=== PATIENT | male | born 1985 | race African-American/Black ===

== ENCOUNTER 2019-02-20 10:51 | Emergency (ER) | payer BC ==
[2019-02-20] MEDS ORDERED: methylPREDNISolone Sodium Succinate 125 MG/2 ML SDV IM ONE (11:22)
[2019-02-20] MEDS ORDERED: Albuterol/Ipratropium 3.0-0.5 MG/3 ML Neb Soln NEB ONE (11:22)
--- NOTE | 2019-02-20 11:30 | EDM.PDOC ---
ED HPI GENERAL MEDICAL PROBLEM - General Chief Complaint: General Stated Complaint: MAY HAVE FLU Time Seen by Provider: 02/20/19 10:54 Source of Information: Reports: Patient History Limitations: Reports: No Limitations - History of Present Illness INITIAL COMMENTS - FREE TEXT/NARRATIVE: HISTORY AND PHYSICAL: History of present illness: Patient is a 33-year-old male who presents to the ED today with concern of cough over the last 4 to 5 days. Patient states initially when the cough that started he did feel as if he had a fever with a cough but states he has not had a fever for 3 days now. Patient states he came to the ED today because he notices he has been wheezing more with a cough and that having "cough attacks." Patient states he does smoke a pack of cigarettes a day and has so for about 3 to 5 years. Patient denies any health history or any other symptoms or concerns. Patient denies fever, chills, chest pain, shortness of breath. Denies headache, neck stiff ness, change in vision, syncope, or near syncope. Denies nausea, vomiting, abdominal pain, diarrhea, constipation, or dysuria. Has not noted any blood in urine or stool. Patient has been eating and drinking appropriately. Review of systems: As per history of present illness and below otherwise all systems reviewed and negative. Past medical history: As per history of present illness and as reviewed below otherwise noncontributory. Surgical history: As per history of present illness and as reviewed below otherwise noncontributory. Social history: See social history for further information Family history: As per history of present illness and as reviewed below otherwise noncontributory. Physical exam: General: Patient is alert, oriented, and in no acute distress. Patient sitting comfortably on exam table. HEENT: Atraumatic, normocephalic, pupils equal and reactive bilaterally, negative for conjunctival pallor or scleral icterus, mucous membranes moist, TMs normal bilaterally, throat clear, neck supple, nontender, trachea midline. No drooling or trismus noted. No meningeal signs. No hot potato voice noted. Lungs: Mild-moderate wheezing to auscultation of bilateral lung bases, breath sounds equal bilaterally, chest nontender. Heart: S1S2, regular rate and rhythm without overt murmur Abdomen: Soft, nondistended, nontender. Negative for masses or hepatosplenomegaly. Negative for costovertebral tenderness. Pelvis: Stable nontender. Genitourinary: Deferred. Rectal: Deferred. Skin: Intact, warm, dry. No lesions or rashes noted. Extremities: Atraumatic, negative for cords or calf pain. Neurovascular unremarkable. Neuro: Awake, alert, oriented. Cranial nerves II through XII unremarkable. Cerebellum unremarkable. Motor and sensory unremarkable throughout. Exam nonfocal. Notes: Discussed importance of follow-up with primary care provider. Voices understanding and is agreeable to plan of care. Denies any further questions or concerns at this time. Diagnostics: CBC, CMP, CXR, Influenza, Strep Therapeutics: Duoneb, Solumedrol Prescription: Medrol dose pack, Proair inhaler, Azithromycin Impression: Cough with wheezing Right middle lobe opacity Plan: 1. Take medication as prescribed. You can alternate ibuprofen and Tylenol as directed for pain and discomfort. 2. Follow-up with your primary care provider as discussed. Return to the ED as needed and as discussed. Definitive disposition and diagnosis as appropriate pending reevaluation and review of above. Generalized Pain Score (Numeric/FACES): 4 - Related Data Allergies Allergy/AdvReac Type Severity Reaction Status Date / Time No Known Allergies Allergy Verified 02/20/19 11:00 Home Meds: Home Meds . [No Known Home Meds] 02/20/19 [History] Past Medical History - Past Health History Medical/Surgical History: Denies Medical/Surgical History - Infectious Disease History Infectious Disease History: Reports: None Social & Family History - Family History Family Medical History: Noncontributory - Tobacco Use Smoking Status *Q: Current Every Day Smoker Years of Tobacco use: 3 Packs/Tins Daily: 1 - Caffeine Use Caffeine Use: Reports: Coffee - Recreational Drug Use Recreational Drug Use: No ED ROS GENERAL - Review of Systems Review Of Systems: Comprehensive ROS is negative, except as noted in HPI. ED EXAM, GENERAL - Physical Exam Exam: See Below (see dictation) Course - Vital Signs Last Recorded V/S: Last Vital Signs Temp 97.0 F 02/20/19 11:01 Pulse 68 02/20/19 11:01 Resp 16 02/20/19 11:01 BP 106/70 02/20/19 11:01 Pulse Ox 97 02/20/19 11:01 - Orders/Labs/Meds Orders: Active Orders 24 hr Category Date Time Status RT Aerosol Therapy [RC] ASDIRECTED Care 02/20/19 11:22 Active CULTURE STREP A CONFIRMATION [RM] Stat Lab 02/20/19 11:06 Results STREP SCRN A RAPID W CULT CONF [RM] Stat Lab 02/20/19 11:06 Results UA RFX YVONNE AND CULT IF INDIC [URIN] Stat Lab 02/20/19 11:21 Ordered Labs: Laboratory Tests 02/20/19 02/20/19 Range/Units 11:48 11:48 WBC 3.01 L (4.0-11.0) K/uL RBC 4.86 (4.50-5.90) M/uL Hgb 14.9 (13.0-17.0) g/dL Hct 42.4 (38.0-50.0) % MCV 87.2 (80.0-98.0) fL MCH 30.7 (27.0-32.0) pg MCHC 35.1 (31.0-37.0) g/dL RDW Std Deviation 43.2 (28.0-62.0) fl RDW Coeff of Celso 14 (11.0-15.0) % Plt Count 205 (150-400) K/uL MPV 9.50 (7.40-12.00) fL Neut % (Auto) 41.2 L (48.0-80.0) % Lymph % (Auto) 38.5 (16.0-40.0) % [place] % (Auto) 19.3 H (0.0-15.0) % Eos % (Auto) 0.3 (0.0-7.0) % Baso % (Auto) 0.7 (0.0-1.5) % Neut # (Auto) 1.2 L (1.4-5.7) K/uL Lymph # (Auto) 1.2 (0.6-2.4) K/uL [place] # (Auto) 0.6 (0.0-0.8) K/uL Eos # (Auto) 0.0 (0.0-0.7) K/uL Baso # (Auto) 0.0 (0.0-0.1) K/uL Nucleated RBC % 0.0 /100WBC Nucleated RBCs # 0 K/uL Sodium 140 (136-148) mmol/L Potassium 4.1 (3.5-5.1) mmol/L Chloride 99 (98-107) mmol/L Carbon Dioxide 31.2 (21.0-32.0) mmol/L BUN 14 (7.0-18.0) mg/dL Creatinine 1.2 (0.8-1.3) mg/dL Est Cr Clr Drug Dosing 91.51 mL/min Estimated GFR (MDRD) > 60.0 ml/min Glucose 88 (74-106) mg/dL Calcium 9.5 (8.5-10.1) mg/dL Total Bilirubin 0.2 (0.2-1.0) mg/dL AST 18 (15-37) IU/L ALT 20 (14-63) IU/L Alkaline Phosphatase 51 (46-116) U/L Total Protein 8.1 (6.4-8.2) g/dL Albumin 4.0 (3.4-5.0) g/dL Globulin 4.1 H (2.6-4.0) g/dL Albumin/Globulin Ratio 1.0 (0.9-1.6) Meds: Medications Discontinued Medications Generic Name Dose Route Start Last Admin Trade Name Freq PRN Reason Stop Dose Admin Albuterol/Ipratropium 3 ml 02/20/19 11:22 02/20/19 11:34 Duoneb 3.0-0.5 Mg/3 Ml NEB 02/20/19 11:23 3 ml ONETIME ONE Administration Methylprednisolone Sodium Succinate 125 mg 02/20/19 11:22 02/20/19 11:43 Solu-Medrol IM 02/20/19 11:23 125 mg ONETIME ONE Administration Departure - Departure Time of Disposition: 13:02 Disposition: Home, Self-Care 01 Clinical Impression: Cough, Wheezing, Opacity of lung on imaging study - Discharge Information Referrals: PCP,None [Primary Care Provider] - Forms: ED Department Discharge Additional Instructions: The following information is given to patients seen in the emergency department who are being discharged to home. This information is to outline your options for follow-up care. We provide all patients seen in our emergency department with a follow-up referral. The need for follow-up, as well as the timing and circumstances, are variable depending upon the specifics of your emergency department visit. If you don't have a primary care physician on staff, we will provide you with a referral. We always advise you to contact your personal physician following an emergency department visit to inform them of the circumstance of the visit and for follow-up with them and/or the need for any referrals to a consulting specialist. The emergency department will also refer you to a specialist when appropriate. This referral assures that you have the opportunity for follow-up care with a specialist. All of these measure are taken in an effort to provide you with optimal care, which includes your follow-up. Under all circumstances we always encourage you to contact your private physician who remains a resource for coordinating your care. When calling for follow-up care, please make the office aware that this follow-up is from your recent emergency room visit. If for any reason you are refused follow-up, please contact the [facility] Emergency Department at and asked to speak to the emergency department charge nurse. [facility] [address] [place] [id number] [place] [address] 1. Take medication as prescribed. You can alternate ibuprofen and Tylenol as directed for pain and discomfort. 2. Follow-up with your primary care provider as discussed. Return to the ED as needed and as discussed. Sepsis Event Note - Evaluation Sepsis Screening Result: No Definite Risk - Focused Exam Vital Signs: Vital Signs Temp Pulse Resp BP Pulse Ox 02/20/19 11:01 97.0 F 68 16 106/70 97 Date Exam was Performed: 02/20/19 Time Exam was Performed: 13:00 - My Orders Last 24 Hours: My Active Orders 02/20/19 11:06 CULTURE STREP A CONFIRMATION [RM] Stat STREP SCRN A RAPID W CULT CONF [RM] Stat 02/20/19 11:21 UA RFX YVONNE AND CULT IF INDIC [URIN] Stat 02/20/19 11:22 RT Aerosol Therapy [RC] ASDIRECTED - Assessment/Plan Last 24 Hours: My Active Orders 02/20/19 11:06 CULTURE STREP A CONFIRMATION [RM] Stat STREP SCRN A RAPID W CULT CONF [RM] Stat 02/20/19 11:21 UA RFX YVONNE AND CULT IF INDIC [URIN] Stat 02/20/19 11:22 RT Aerosol Therapy [RC] ASDIRECTED
--- NOTE | 2019-02-20 12:24 | CR ---
Chest: 2 views of the chest were obtained. Comparison: No previous chest x-ray is available. Slight parenchymal density noted within the right middle lobe. Lungs otherwise are clear. Bony structures are unremarkable. Impression: 1. Mild increased density within right middle lobe most likely representing focal bronchitis. 2. 2 view chest x-ray is otherwise unremarkable. Diagnostic code #3 This report was dictated in [place] Standard Time
[2019-02-20 12:47] LABS: BLOOD UREA NITROGEN,BUN 14 mg/dL (7.0-18.0); CARBON DIOXIDE,CO2 31.2 mmol/L (21.0-32.0); CHLORIDE,CL 99 mmol/L (98-107); GLUCOSE RANDOM 88 mg/dL (74-106); POTASSIUM,K 4.1 mmol/L (3.5-5.1); SODIUM,NA 140 mmol/L (136-148)
== END 2019-02-20 13:16 | disposition home or self-care (01) ==
LOC: MW.ED 10:51
DX: R05 Cough (principal); R06.02 Shortness of breath; R91.8 Other nonspecific abnormal finding of lung field; F17.210 Nicotine dependence, cigarettes, uncomplicated
CPT/HCPCS: 36415; 71046; 80053; 85025; 87081; 87804; 87880; 94640; 96372; 99285; J2930; J7620-GY

== ENCOUNTER 2019-08-07 02:14 | Emergency (ER) | payer BC ==
[2019-08-07] MEDS ORDERED: Aspirin 81 MG Tab.Chew PO ONE (02:22)
[2019-08-07] MEDS ORDERED: Sodium Chloride 0.9% 10 ML Syringe FLUSH PRN (02:22)
[2019-08-07] MEDS ORDERED: Sodium Chloride 0.9% 2.5 ML Syringe FLUSH PRN (02:22)
--- NOTE | 2019-08-07 02:26 | EDM.PDOC ---
ED HPI GENERAL MEDICAL PROBLEM - General Chief Complaint: Chest Pain Stated Complaint: CHEST PAIN, SHORTNESS OF BREATH Time Seen by Provider: 08/07/19 02:21 - History of Present Illness INITIAL COMMENTS - FREE TEXT/NARRATIVE: History of present illness: 34-year-old male presenting with left-sided chest pain, on and off for the last week. Described as sharpness that occasionally radiates into the left arm. He did report that at some points during the last week he felt that his neck and jaw were tightening as well. He also does describe some pain associated with breathing. No leg pain or swelling. No recent trips. No hormonal medications. No prior medical history. Does smoke cigarettes and drink alcohol. Denies any substance use including especially cocaine. No fevers or chills. No cough. Does have a family history of cardiac disease, however none at young ages. Review of systems: As per history of present illness and below otherwise all systems reviewed and negative. Past medical history: As per history of present illness and as reviewed below otherwise noncontributory. Surgical history: As per history of present illness and as reviewed below otherwise noncontributory. Social history: No reported history of drug or alcohol abuse. Family history: As per history of present illness and as reviewed below otherwise noncontributory. Physical exam: GEN: no acute distress, well appearing HEENT: Atraumatic, normocephalic, mucous membranes moist, Neck: supple, nontender, trachea midline. Lungs: No respiratory distress. Heart: RRR Abdomen: Soft, nondistended, nontender. Back: nontender Extremities: Atraumatic. Neurovascularly intact. Neuro: Awake, alert, oriented. Neuro Exam nonfocal. Skin: warm, dry, no lesions Diagnostics: EKG performed today at 2:16 AM, sinus rhythm, rate 76, right axis deviation, mild ST prominence, likely early repolarization pattern. No STEMI. Therapeutics: Aspirin MDM: Chest wall pain versus pneumonia versus coronary artery disease, low risk due to age but patient is a smoker. Low risk for PE/DVT: PERC negative. Impression: [] Plan: [] Definitive disposition and diagnosis as appropriate pending reevaluation and review of above. chest area Pain Score (Numeric/FACES): 0 - Related Data Allergies Allergy/AdvReac Type Severity Reaction Status Date / Time No Known Allergies Allergy Verified 08/07/19 02:22 Home Meds: Home Meds . [No Known Home Meds] 02/20/19 [History] Past Medical History - Past Health History Medical/Surgical History: Denies Medical/Surgical History - Infectious Disease History Infectious Disease History: Reports: None Social & Family History - Family History Family Medical History: Noncontributory - Caffeine Use Caffeine Use: Reports: Coffee ED ROS GENERAL - Review of Systems Review Of Systems: See Below (See HPI) ED EXAM, GENERAL - Physical Exam Exam: See Below (See HPI) Course - Vital Signs Text/Narrative:: Chest pain for the last week, on and off, mild associated difficulty breathing as well. He is a smoker. No other cardiac risk factors. Labs unremarkable, d-dimer negative, patient low risk for PE/DVT and PERC also negative. EKG with early repolarization, no ischemia. Heart score =2, patient low risk for adverse cardiac event or ACS. Pain completely resolved on multiple reassessments. Patient in no acute distress. Provided follow-up instructions, referral to primary care, discussion about smoking cessation as well as smoking cessation instructions and return to emergency department instructions. Last Recorded V/S: Last Vital Signs Temp 97.9 F 08/07/19 02:15 Pulse 63 08/07/19 03:45 Resp 18 08/07/19 03:45 BP 110/67 08/07/19 03:45 Pulse Ox 97 08/07/19 03:45 - Orders/Labs/Meds Orders: Active Orders 24 hr Category Date Time Status Cardiac Monitoring [RC] . DIRECTED Care 08/07/19 02:22 Active EKG Documentation Completion [RC] STAT Care 08/07/19 02:22 Active Sodium Chloride 0.9% [Saline Flush] Med 08/07/19 02:22 Active 10 ml FLUSH ASDIRECTED PRN Sodium Chloride 0.9% [Saline Flush] Med 08/07/19 02:22 Active 2.5 ml FLUSH ASDIRECTED PRN Saline Lock Insert [OM.PC] Stat Oth 08/07/19 02:22 Ordered Medication Orders Sodium Chloride (Saline Flush) 10 ml FLUSH ASDIRECTED PRN PRN Reason: Keep Vein Open Sodium Chloride (Saline Flush) 2.5 ml FLUSH ASDIRECTED PRN PRN Reason: Keep Vein Open Labs: Laboratory Tests 08/07/19 08/07/1920 Range/Units 02:20 02:20 02:20 WBC 6.30 (4.0-11.0) K/uL RBC 4.60 (4.50-5.90) M/uL Hgb 13.8 (13.0-17.0) g/dL Hct 40.4 (38.0-50.0) % MCV 87.8 (80.0-98.0) fL MCH 30.0 (27.0-32.0) pg MCHC 34.2 (31.0-37.0) g/dL RDW Std Deviation 42.1 (28.0-62.0) fl RDW Coeff of Celso 13 (11.0-15.0) % Plt Count 271 (150-400) K/uL MPV 9.30 (7.40-12.00) fL Neut % (Auto) 58.0 (48.0-80.0) % Lymph % (Auto) 33.7 (16.0-40.0) % [place] % (Auto) 7.0 (0.0-15.0) % Eos % (Auto) 1.0 (0.0-7.0) % Baso % (Auto) 0.3 (0.0-1.5) % Neut # (Auto) 3.7 (1.4-5.7) K/uL Lymph # (Auto) 2.1 (0.6-2.4) K/uL [place] # (Auto) 0.4 (0.0-0.8) K/uL Eos # (Auto) 0.1 (0.0-0.7) K/uL Baso # (Auto) 0.0 (0.0-0.1) K/uL Nucleated RBC % 0.0 /100WBC Nucleated RBCs # 0 K/uL D-Dimer, Quantitative < 0.19 (0.0-0.50) mg/L FEU Sodium 141 (136-148) mmol/L Potassium 3.4 L (3.5-5.1) mmol/L Chloride 101 (98-107) mmol/L Carbon Dioxide 26.6 (21.0-32.0) mmol/L BUN 7 (7.0-18.0) mg/dL Creatinine 1.1 (0.8-1.3) mg/dL Est Cr Clr Drug Dosing 101.90 mL/min Estimated GFR (MDRD) > 60.0 ml/min Glucose 138 H (74-106) mg/dL Calcium 8.6 (8.5-10.1) mg/dL Total Bilirubin 0.4 (0.2-1.0) mg/dL AST 15 (15-37) IU/L ALT 10 L (14-63) IU/L Alkaline Phosphatase 54 (46-116) U/L Troponin I <0.050 (0.000-0.056) ng/mL Total Protein 7.8 (6.4-8.2) g/dL Albumin 4.2 (3.4-5.0) g/dL Globulin 3.6 (2.6-4.0) g/dL Albumin/Globulin Ratio 1.2 (0.9-1.6) Lipase 65 L (73-393) U/L SARS-CoV-2 RNA (RT-PCR) (NEGATIVE) 08/07/19 Range/Units 04:16 WBC (4.0-11.0) K/uL RBC (4.50-5.90) M/uL Hgb (13.0-17.0) g/dL Hct (38.0-50.0) % MCV (80.0-98.0) fL MCH (27.0-32.0) pg MCHC (31.0-37.0) g/dL RDW Std Deviation (28.0-62.0) fl RDW Coeff of Celso (11.0-15.0) % Plt Count (150-400) K/uL MPV (7.40-12.00) fL Neut % (Auto) (48.0-80.0) % Lymph % (Auto) (16.0-40.0) % [place] % (Auto) (0.0-15.0) % Eos % (Auto) (0.0-7.0) % Baso % (Auto) (0.0-1.5) % Neut # (Auto) (1.4-5.7) K/uL Lymph # (Auto) (0.6-2.4) K/uL [place] # (Auto) (0.0-0.8) K/uL Eos # (Auto) (0.0-0.7) K/uL Baso # (Auto) (0.0-0.1) K/uL Nucleated RBC % /100WBC Nucleated RBCs # K/uL D-Dimer, Quantitative (0.0-0.50) mg/L FEU Sodium (136-148) mmol/L Potassium (3.5-5.1) mmol/L Chloride (98-107) mmol/L Carbon Dioxide (21.0-32.0) mmol/L BUN (7.0-18.0) mg/dL Creatinine (0.8-1.3) mg/dL Est Cr Clr Drug Dosing mL/min Estimated GFR (MDRD) ml/min Glucose (74-106) mg/dL Calcium (8.5-10.1) mg/dL Total Bilirubin (0.2-1.0) mg/dL AST (15-37) IU/L ALT (14-63) IU/L Alkaline Phosphatase (46-116) U/L Troponin I (0.000-0.056) ng/mL Total Protein (6.4-8.2) g/dL Albumin (3.4-5.0) g/dL Globulin (2.6-4.0) g/dL Albumin/Globulin Ratio (0.9-1.6) Lipase (73-393) U/L SARS-CoV-2 RNA (RT-PCR) NEGATIVE (NEGATIVE) Meds: Medications Generic Name Dose Route Start Last Admin Trade Name Freq PRN Reason Stop Dose Admin Sodium Chloride 10 ml 08/07/19 02:22 Saline Flush FLUSH ASDIRECTED PRN Keep Vein Open Sodium Chloride 2.5 ml 08/07/19 02:22 Saline Flush FLUSH ASDIRECTED PRN Keep Vein Open Discontinued Medications Generic Name Dose Route Start Last Admin Trade Name Freq PRN Reason Stop Dose Admin Aspirin 324 mg 08/07/19 02:22 08/07/19 02:31 Aspirin PO 08/07/19 02:23 324 mg ONETIME ONE Administration Sodium Chloride 1,000 mls @ 999 mls/hr 08/07/19 02:29 08/07/19 02:31 Normal Saline IV 08/07/19 03:29 999 mls/hr .BOLUS ONE Administration - Re-Assessments/Exams Free Text/Narrative Re-Assessment/Exam: 08/07/19 03:56 On re-assessment, the patient is resting comfortably and in no acute distress. He reports his pain is now resolved. However his oxygen saturation was 94% on room air, and after discussion with the patient, he does report that he has felt more fatigued and gets easily winded over the last week or so, more than he ever had in the past. He is usually pretty active throughout the day and low risk for PE/DVT with a negative PERC, however given the patient's symptoms and O2 saturation, I will check a d-dimer. This was added on labs. Also a coronavirus swab will be sent. 08/07/19 05:07 On reassessment, the patient is resting and in no acute distress. Denies any pain at this time. Discussed all final results with the patient. Coronavirus and d-dimer were both negative. Discussed with the patient need for smoking cessation. He agrees to cut back on cigarettes. Also discussed plan for outpatient primary care follow-up for further work-up. He agrees with this plan. Discussed return instructions as well. Stable for discharge. Departure - Departure Time of Disposition: 05:08 Disposition: Home, Self-Care 01 Clinical Impression: Encounter for smoking cessation counseling Chest pain Qualifiers: Chest pain type: unspecified Qualified Code(s): R07.9 - Chest pain, unspecified Instructions: Smoking Tobacco Information, Adult, Nonspecific Chest Pain, Adult, [id number] Referrals: PCP,None [Primary Care Provider] - Forms: ED Department Discharge Additional Instructions: The following information is given to patients seen in the emergency department who are being discharged to home. This information is to outline your options for follow-up care. We provide all patients seen in our emergency department with a follow-up referral. The need for follow-up, as well as the timing and circumstances, are variable depending upon the specifics of your emergency department visit. If you don't have a primary care physician on staff, we will provide you with a referral. We always advise you to contact your personal physician following an emergency department visit to inform them of the circumstance of the visit and for follow-up with them and/or the need for any referrals to a consulting specialist. The emergency department will also refer you to a specialist when appropriate. This referral assures that you have the opportunity for follow-up care with a specialist. All of these measure are taken in an effort to provide you with optimal care, which includes your follow-up. Under all circumstances we always encourage you to contact your private physician who remains a resource for coordinating your care. When calling for follow-up care, please make the office aware that this follow-up is from your recent emergency room visit. If for any reason you are refused follow-up, please contact the [facility] Emergency Department at and asked to speak to the emergency department charge nurse. [facility] [address] [place] [id number] [facility] [address] [place] [id number] Sepsis Event Note (ED) - Focused Exam Vital Signs: Vital Signs Temp Pulse Resp BP Pulse Ox 08/07/19 03:45 63 18 110/67 97 08/07/19 02:15 97.9 F 80 18 132/82 100 - My Orders Last 24 Hours: My Active Orders 08/07/19 02:22 Cardiac Monitoring [RC] . DIRECTED EKG Documentation Completion [RC] STAT Sodium Chloride 0.9% [Saline Flush] 10 ml FLUSH ASDIRECTED PRN Sodium Chloride 0.9% [Saline Flush] 2.5 ml FLUSH ASDIRECTED PRN Saline Lock Insert [OM.PC] Stat - Assessment/Plan Last 24 Hours: My Active Orders 08/07/19 02:22 Cardiac Monitoring [RC] . DIRECTED EKG Documentation Completion [RC] STAT Sodium Chloride 0.9% [Saline Flush] 10 ml FLUSH ASDIRECTED PRN Sodium Chloride 0.9% [Saline Flush] 2.5 ml FLUSH ASDIRECTED PRN Saline Lock Insert [OM.PC] Stat
[2019-08-07] MEDS ORDERED: Sodium Chloride 0.9% 1,000 ML IV ONE (02:29)
[2019-08-07 02:57] LABS: BLOOD UREA NITROGEN,BUN 7 mg/dL (7.0-18.0); CARBON DIOXIDE,CO2 26.6 mmol/L (21.0-32.0); CHLORIDE,CL 101 mmol/L (98-107); GLUCOSE RANDOM 138 mg/dL (74-106); LIPASE 65 U/L (73-393); POTASSIUM,K 3.4 mmol/L (3.5-5.1); SODIUM,NA 141 mmol/L (136-148)
--- NOTE | 2019-08-07 03:24 | CR ---
Indication: Chest pain and shortness of breath proved Technique: Chest 2 views Comparison: None Findings/Impression: Cardiovascular and mediastinum: Heart size and vasculature are normal in caliber and appearance. Mediastinum is within normal limits. Lungs and pleural spaces: Lungs are clear. No sign of infiltrate or mass. No sign of pleural effusion. No pneumothorax. Bones and soft tissues: Calcification left upper quadrant, possibly calcified splenic granuloma. Dictated by Donnell Gregg MD @ Aug 07 2019 3:22AM Signed by Dr. Donnell Gregg @ Aug 07 2019 3:23AM
== END 2019-08-07 05:15 | disposition home or self-care (01) ==
LOC: MW.ED 02:14
DX: R07.9 Chest pain, unspecified (principal); Z71.6 Tobacco abuse counseling; F17.200 Nicotine dependence, unspecified, uncomplicated
CPT/HCPCS: 36415; 71046; 80053; 83690; 84484; 85025; 85379; 87635; 93005; 99285; A9270; J7030; U0002

== ENCOUNTER 2019-08-17 03:44 | Emergency (ER) | payer BC, OTHER ==
[2019-08-17] MEDS ORDERED: Sodium Chloride 0.9% 2.5 ML Syringe FLUSH PRN (04:17)
[2019-08-17] MEDS ORDERED: Sodium Chloride 0.9% 10 ML Syringe FLUSH PRN (04:17)
--- NOTE | 2019-08-17 05:24 | CR ---
INDICATION: Chest pain TECHNIQUE: Chest radiograph 1 view COMPARISON: 08/07/2019 FINDINGS: Mediastinum: The mediastinum is normal in appearance. The heart silhouette is normal in size and morphology. Lung: Both lungs are unremarkable in appearance. No sign of pleural effusion seen. No pneumothorax is identified. Bone and Soft tissue: Unremarkable for age. IMPRESSION: 1. No acute cardiopulmonary disease is seen. Dictated by: Steve Funes MD @ 08/17/2019 05:22:33 (Electronically Signed)
[2019-08-17 05:25] LABS: BLOOD UREA NITROGEN,BUN 6 mg/dL (7.0-18.0); CARBON DIOXIDE,CO2 29.9 mmol/L (21.0-32.0); CHLORIDE,CL 102 mmol/L (98-107); GLUCOSE RANDOM 89 mg/dL (74-106); POTASSIUM,K 3.3 mmol/L (3.5-5.1); SODIUM,NA 141 mmol/L (136-148)
--- NOTE | 2019-08-17 05:30 | EDM.PDOC ---
ED HPI GENERAL MEDICAL PROBLEM - General Chief Complaint: General Stated Complaint: ALCOHOL, FACE NUMB, SHAKY Time Seen by Provider: 08/17/19 03:46 Source of Information: Reports: Patient, Old Records History Limitations: Reports: No Limitations - History of Present Illness INITIAL COMMENTS - FREE TEXT/NARRATIVE: 34-year-old male with no past medical history presenting with chest discomfort, shortness of breath, and facial/head numbness. Patient reports substernal chest pain described as "sharp". This happened 5 or 6 times prior to arrival and lasted for less than 1 minute each time. Resolved while he was waiting here in the emergency department. Currently is not experiencing this pain anymore. He also describes several weeks of pain to the left anterior chest. This is been constant for at least 2 to 3 weeks and is not particularly worse today. He was seen in the emergency department several days ago and discharged and has not followed up with a primary medical physician yet. He also describes shortness of breath for approximately 1 minute, which resolved prior to arrival. He also describes an episode of numbness to the bilateral occipital scalp, his entire face, and his anterior neck. This resolved prior to arrival as well. At present he denies any shortness of breath, facial or extremity numbness or weakness, dysarthria, dysphasia, gait instability, difficulty swallowing, or any other neurologic changes. Left Chest Pain Score (Numeric/FACES): 3 - Related Data Allergies Allergy/AdvReac Type Severity Reaction Status Date / Time No Known Allergies Allergy Verified 08/17/19 03:58 Home Meds: Home Meds . [No Known Home Meds] 02/20/19 [History] Past Medical History - Past Health History Medical/Surgical History: Denies Medical/Surgical History HEENT History: Reports: None Cardiovascular History: Reports: None Respiratory History: Reports: Asthma Gastrointestinal History: Reports: None Genitourinary History: Reports: None Musculoskeletal History: Reports: None Neurological History: Reports: None Psychiatric History: Reports: None Endocrine/Metabolic History: Reports: None Insulin Pump Model and Bicycle Assembler: None Hematologic History: Reports: None Immunologic History: Reports: None Oncologic (Cancer) History: Reports: None Dermatologic History: Reports: None - Infectious Disease History Infectious Disease History: Reports: None - Past Surgical History Head Surgeries/Procedures: Reports: None Social & Family History - Family History Family Medical History: Noncontributory - Tobacco Use Smoking Status *Q: Current Some Day Smoker Years of Tobacco use: 10 Packs/Tins Daily: 0.4 - Caffeine Use Caffeine Use: Reports: None - Recreational Drug Use Recreational Drug Use: No ED ROS GENERAL - Review of Systems Review Of Systems: See Below Constitutional: Denies: Fever, Chills HEENT: Denies: Vision Change Respiratory: Reports: Shortness of Breath Cardiovascular: Reports: Chest Pain Endocrine: Reports: No Symptoms GI/Abdominal: Denies: Abdominal Pain, Nausea, Vomiting : Denies: Flank Pain Musculoskeletal: Denies: Back Pain Skin: Denies: Lesions Neurological: Reports: Numbness. Denies: Dizziness, Headache, Paresthesia, Trouble Speaking, Difficulty Walking, Weakness, Change in Speech, Gait Disturbance ED EXAM, GENERAL - Physical Exam Exam: See Below Free Text/Narrative:: Vital signs reviewed. Nursing notes reviewed. Constitutional: Awake, alert, non-distressed. Head: Normocephalic, atraumatic. Eyes: EOMI, conjunctiva normal, no discharge, no scleral icterus. Ears, Nose, Throat: External ears and nose normal, moist oral mucosa. Neck: Supple, full range of motion Cardiovascular: 2+ radial pulse, capillary refill less than 2 seconds. Pulmonary: normal work of breathing, no accessory muscle use. CTA BL Abdomen/GI: Soft, nontender, nondistended, no guarding or rigidity, no masses. Musculoskeletal: No deformities. Integumentary: Appropriate color for ethnicity, warm, dry, no pallor or jaundice, no rash. Neurologic: Awake, alert, and oriented x3. Cranial nerves II through XII intact. No facial droop or dysarthria. Supple neck with normal range of motion. No pronator drift. Normal ggjuye-mbvb-zmyeup and mgby-fc-kvxs. No dysdiadochokinesia. 5/5 strength in all extremities. Sensation intact to light touch x4. Normal gait. Normal visual christian, no field cuts. Able to sit, stand, and ambulate without assistance. Psychiatric: Appropriate mood and affect, normal thought process. EKG INTERPRETATION EKG Interpretation Comments: 12-Lead ECG Interpretation Acquired: 4:30 AM Rhythm: Sinus rhythm Rate: 61 bpm [place]: Normal Intervals: Normal Ectopy: None RV Strain: No obvious RV strain pattern. ST Segments/T-Waves: No notable changes Interpretation: Early repolarization pattern Course - Vital Signs Text/Narrative:: Patient hemodynamically stable, afebrile, well-appearing, looks nontoxic. Differential diagnosis includes but is not limited to: CVA, TIA, neuropathy, ACS, pulmonary embolism, aortic dissection, acute systolic heart failure, pneumonia, pneumothorax, pericardial effusion, pleural effusion, pericarditis, endocarditis, esophageal rupture, GERD, drug-induced chest pain, chest wall pain, and many others. Twelve-lead EKG appears nonischemic. Troponin testing is negative. Chest x-ray is clear. CBC reassuring. Mild hypokalemia noted. Normal renal function. Normal LFTs. The patient described an approximately 5-minute long period of bilateral facial numbness, anterior neck numbness, and bilateral occipital numbness. This went away prior to his arrival in the ER. Anatomically this does not make sense as it does not fit in a specific vascular distribution for a CVA or TIA given that it is bilateral and would have to involve both cortices at the same time. He has no evidence of a neurologic deficit at the moment. HEART score of zero. Wells PE score of zero. Low suspicion for pulmonary embolism given that sharp chest pain was only present for a few seconds at a time. Patient is not tachycardic or hypoxic or tachypneic. He is not having any shortness of breath anymore and has no risk factors for venous thromboembolism. Substernal chest pain resolved prior to arrival, making dissection, PE, or acute coronary syndrome quite unlikely. No mediastinal widening on x-ray. No evidence of heart failure by examination. Afebrile, no infectious symptoms. No history of repeated vomiting to suggest esophageal rupture. No clinical signs to suggest endocarditis such as murmur or [place] lesions. No history of chest wall trauma. Given negative work-up and well appearance, patient is stable to discharge home with outpatient primary care follow-up. Recommended [id number] Tylenol and Motrin for pain as needed. Strict emergency department return precautions were provided, patient indicated understanding. All questions were answered prior to departure. Discharged in good condition. Last Recorded V/S: Last Vital Signs Temp 36.2 C 08/17/19 03:54 Pulse 76 08/17/19 05:40 Resp 18 08/17/19 05:40 BP 120/76 08/17/19 05:40 Pulse Ox 98 08/17/19 05:40 - Orders/Labs/Meds Orders: Active Orders 24 hr Category Date Time Status Saline Lock Insert [OM.PC] Stat Oth 08/17/19 04:17 Ordered Labs: Laboratory Tests 08/17/19 08/17/19 Range/Units 04:42 04:42 WBC 3.93 L (4.0-11.0) K/uL RBC 4.64 (4.50-5.90) M/uL Hgb 14.1 (13.0-17.0) g/dL Hct 41.0 (38.0-50.0) % MCV 88.4 (80.0-98.0) fL MCH 30.4 (27.0-32.0) pg MCHC 34.4 (31.0-37.0) g/dL RDW Std Deviation 44.0 (28.0-62.0) fl RDW Coeff of [place] 14 (11.0-15.0) % Plt Count 282 (150-400) K/uL MPV 9.50 (7.40-12.00) fL Neut % (Auto) 57.8 (48.0-80.0) % Lymph % (Auto) 35.4 (16.0-40.0) % [place] % (Auto) 5.3 (0.0-15.0) % Eos % (Auto) 1.0 (0.0-7.0) % Baso % (Auto) 0.5 (0.0-1.5) % Neut # (Auto) 2.3 (1.4-5.7) K/uL Lymph # (Auto) 1.4 (0.6-2.4) K/uL [place] # (Auto) 0.2 (0.0-0.8) K/uL Eos # (Auto) 0.0 (0.0-0.7) K/uL Baso # (Auto) 0.0 (0.0-0.1) K/uL Nucleated RBC % 0.0 /100WBC Nucleated RBCs # 0 K/uL Sodium 141 (136-148) mmol/L Potassium 3.3 L (3.5-5.1) mmol/L Chloride 102 (98-107) mmol/L Carbon Dioxide 29.9 (21.0-32.0) mmol/L BUN 6 L (7.0-18.0) mg/dL Creatinine 1.1 (0.8-1.3) mg/dL Est Cr Clr Drug Dosing 104.92 mL/min Estimated GFR (MDRD) > 60.0 ml/min Glucose 89 (74-106) mg/dL Calcium 9.1 (8.5-10.1) mg/dL Total Bilirubin 0.3 (0.2-1.0) mg/dL AST 15 (15-37) IU/L ALT 14 (14-63) IU/L Alkaline Phosphatase 53 (46-116) U/L Troponin I <0.050 (0.000-0.056) ng/mL Total Protein 7.8 (6.4-8.2) g/dL Albumin 4.3 (3.4-5.0) g/dL Globulin 3.5 (2.6-4.0) g/dL Albumin/Globulin Ratio 1.2 (0.9-1.6) Meds: Medications Discontinued Medications Generic Name Dose Route Start Last Admin Trade Name Freq PRN Reason Stop Dose Admin Sodium Chloride 10 ml 08/17/19 04:17 Saline Flush FLUSH ASDIRECTED PRN Keep Vein Open Sodium Chloride 2.5 ml 08/17/19 04:17 Saline Flush FLUSH ASDIRECTED PRN Keep Vein Open Departure - Departure Time of Disposition: 05:28 Disposition: Home, Self-Care 01 Condition: Good Clinical Impression: Atypical chest pain Dyspnea Qualifiers: Dyspnea type: unspecified Qualified Code(s): R06.00 - Dyspnea, unspecified - Discharge Information *PRESCRIPTION DRUG MONITORING PROGRAM REVIEWED*: Not Applicable *COPY OF PRESCRIPTION DRUG MONITORING REPORT IN PATIENT CAREY: Not Applicable Instructions: Shortness of Breath, Adult, Svim-is-Igxd, Nonspecific Chest Pain, Adult, Xxwy-pi-[id number] Referrals: [facility] [Provider Group] - 1 Week (For follow-up of your sym ptoms.) Forms: ED Department Discharge Additional Instructions: Thank you for choosing the [facility] emergency department in [place] for your medical needs today. It was a pleasure caring for you. You were seen in the emergency department for chest pain and shortness of breath. Your blood work, EKG, and x-rays look normal. We do not see any sign of a heart attack at this point. I would like for you to follow-up with the family medicine clinic in the next week for reevaluation. In the meantime you can take [id number]-[id number] Tylenol and ibuprofen as directed on the box for pain. Come back to the ER if your chest pain recurs, worsens, or if you have trouble breathing again. Please return the emergency department immediately if your symptoms worsen or if you feel worse. The following information is given to patients seen in the emergency department who are being discharged. This information is to outline your options for follow-up care. We provide all patients seen in our emergency department with a follow-up referral. The need for follow-up, as well as the timing and circumstances, are variable depending upon the specifics of your emergency department visit. If you don't have a primary care physician on staff, we will provide you with a referral. We always advise you to contact your personal physician following an emergency department visit to inform them of the circumstance of the visit and for follow-up with them and/or the need for any referrals to a consulting specialist. The emergency department will also refer you to a specialist when appropriate. This referral assures that you have the opportunity for follow-up care with a specialist. All of these measure are taken in an effort to provide you with optimal care, which includes your follow-up. Under all circumstances we always encourage you to contact your private physician who remains a resource for coordinating your care. When calling for follow-up care, please make the office aware that this follow-up is from your recent emergency room visit. If for any reason you are refused follow-up, please contact the [facility] Emergency Department at and asked to speak to the emergency department charge nurse. If you do not have a primary care physician that is caring for you, you can contact these clinics below to set up an appointment to establish care: [facility] - Primary Care [address] [id number] [address] [place] [address] Sepsis Event Note (ED) - Evaluation Sepsis Screening Result: No Definite Risk - Focused Exam Vital Signs: Vital Signs Temp Pulse Resp BP Pulse Ox 08/17/19 05:40 76 18 120/76 98 08/17/19 03:54 36.2 C 74 18 119/86 98 - My Orders Last 24 Hours: My Active Orders 08/17/19 04:17 Saline Lock Insert [OM.PC] Stat - Assessment/Plan Last 24 Hours: My Active Orders 08/17/19 04:17 Saline Lock Insert [OM.PC] Stat
== END 2019-08-17 05:43 | disposition home or self-care (01) ==
LOC: MW.ED 03:44
DX: R07.89 Other chest pain (principal); R06.02 Shortness of breath; F17.210 Nicotine dependence, cigarettes, uncomplicated
CPT/HCPCS: 36415; 71045; 71045-26; 80053; 84484; 85025; 93005; 99283; 99285-25

== ENCOUNTER 2019-08-27 12:13 | Emergency (ER) | payer BC ==
--- NOTE | 2019-08-27 13:01 | EDM.PDOC ---
ED [facility] GENERAL MEDICAL PROBLEM - General Chief Complaint: Gastrointestinal Problem Stated Complaint: SOB/DIARRHEA Time Seen by Provider: 08/27/19 12:39 - History of Present Illness INITIAL COMMENTS - FREE TEXT/NARRATIVE: HISTORY AND PHYSICAL: History of present illness: This 34-year-old male is very concerned that he has COVID-19 and has his second visit. He was tested 2 to 3 weeks ago and was negative. He has some mild body aches, runny nose, but no cough or fever. He was concerned because of the symptoms and wanted to be tested before he travels to [place] where his family is. He denies fevers. Says his runny nose goes away after couple of hours, and has no other significant symptoms like diarrhea, lack of smell or taste, or shortness of breath. Review of systems: A 10-point review of systems, other than pertinent positives and negatives as stated per HPI, is otherwise negative. Past medical history: As per history of present illness and as reviewed below otherwise noncontributory. Surgical history: As per history of present illness and as reviewed below otherwise noncontributory. Social history: No reported history of drug or alcohol abuse. Family history: As per history of present illness and as reviewed below otherwise noncontributory. Physical exam: VITAL SIGNS: Reviewed. GENERAL: In no apparent distress. HEAD: No signs of head trauma. EYES: Pupils are equal. Extraocular motions intact. EARS: Hearing grossly intact. MOUTH: Oropharynx is normal. NECK: No adenopathy, no JVD. CHEST: Chest with clear breath sounds bilaterally. No wheezes, rales, or rhonchi. CARDIAC: Regular rate and rhythm. Normal S1 and S2, without murmurs, gallops, or rubs. VASCULAR: Peripheral pulses normal and equal in all extremities. ABDOMEN: Soft, without detectable tenderness. No sign of distention. No rebound or guarding, and no masses palpated. MUSCULOSKELETAL: Good range of motion of all major joints. Extremities without clubbing, cyanosis or edema. NEUROLOGIC EXAM: Alert and oriented x 3. No focal sensory or motor deficits. Speech normal. Follows commands. PSYCHIATRIC: Mood normal. SKIN: No rash or lesions. Initial Differential Diagnosis & Plan: Very low likelihood for COVID-19. Suspect that this is allergies. No fever. No other symptoms that put him at high risk. Normal oxygen saturation and normal vital signs. Definitive disposition and diagnosis as appropriate pending reevaluation and review of above. Generalized Pain Score (Numeric/FACES): 5 - Related Data Allergies Allergy/AdvReac Type Severity Reaction Status Date / Time No Known Allergies Allergy Verified 08/27/19 12:30 Home Meds: Home Meds Acetaminophen [Tylenol Extra Strength] 1,000 mg PO Q6HR PRN #60 tablet 08/27/19 [Rx] Cetirizine HCl [Zyrtec] 10 mg PO DAILY 14 Days #40 capsule 08/27/19 [Rx] Diclofenac Potassium [Cataflam] 50 mg PO BID #60 tab 08/27/19 [Rx] Past Medical History - Past Health History Medical/Surgical History: Denies Medical/Surgical History HEENT History: Reports: None Cardiovascular History: Reports: None Respiratory History: Reports: Asthma Gastrointestinal History: Reports: None Genitourinary History: Reports: None Musculoskeletal History: Reports: None Neurological History: Reports: None Psychiatric History: Reports: None Endocrine/Metabolic History: Reports: None Insulin Pump Model and Crane Follower: None Hematologic History: Reports: None Immunologic History: Reports: None Oncologic (Cancer) History: Reports: None Dermatologic History: Reports: None - Infectious Disease History Infectious Disease History: Reports: None - Past Surgical History Head Surgeries/Procedures: Reports: None HEENT Surgical History: Reports: None Cardiovascular Surgical History: Reports: None GI Surgical History: Reports: None Male Surgical History: Reports: None Endocrine Surgical History: Reports: None Neurological Surgical History: Reports: None Musculoskeletal Surgical History: Reports: None Dermatological Surgical History: Reports: None Social & Family History - Family History Family Medical History: Noncontributory - Tobacco Use Smoking Status *Q: Current Every Day Smoker Years of Tobacco use: 2 Packs/Tins Daily: 0.5 Used Tobacco, but Quit: No Second Hand Smoke Exposure: No - Caffeine Use Caffeine Use: Reports: Coffee - Recreational Drug Use Recreational Drug Use: No ED ROS GENERAL - Review of Systems Review Of Systems: See Below (noted) ED EXAM, GI/ABD - Physical Exam Exam: See Below (noted) Course - Vital Signs Last Recorded V/S: Last Vital Signs Temp 97.5 F 08/27/19 12:31 Pulse 97 08/27/19 12:31 Resp 15 08/27/19 12:31 BP 117/81 08/27/19 12:31 Pulse Ox 100 08/27/19 12:31 Departure - Departure Time of Disposition: 12:58 Disposition: Home, Self-Care 01 Condition: Good Clinical Impression: Allergic rhinitis, Myalgia - Discharge Information *PRESCRIPTION DRUG MONITORING PROGRAM REVIEWED*: Not Applicable *COPY OF PRESCRIPTION DRUG MONITORING REPORT IN PATIENT CAREY: Not Applicable Prescriptions: Diclofenac Potassium [Cataflam] 50 mg PO BID #60 tab Acetaminophen [Tylenol Extra Strength] 1,000 mg PO Q6HR PRN #60 tablet PRN Reason: Pain Cetirizine HCl [Zyrtec] 10 mg PO DAILY 14 Days #40 capsule Instructions: Dehydration, Adult, [id number]-dw-[id number], Allergic Rhinitis, Adult Referrals: Isael Wise [Ordering Only Provider] - Forms: ED Department Discharge, ED Summary Discharge Additional Instructions: The following information is given to patients seen in the emergency department who are being discharged to home. This information is to outline your options for follow-up care. We provide all patients seen in our emergency department with a follow-up referral. The need for follow-up, as well as the timing and circumstances, are variable depending upon the specifics of your emergency department visit. If you don't have a primary care physician on staff, we will provide you with a referral. We always advise you to contact your personal physician following an emergency department visit to inform them of the circumstance of the visit and for follow-up with them and/or the need for any referrals to a consulting specialist. The emergency department will also refer you to a specialist when appropriate. This referral assures that you have the opportunity for follow-up care with a specialist. All of these measure are taken in an effort to provide you with optimal care, which includes your follow-up. Thank you for coming to the [facility] urgency department for your care today. It was Dr. Dallas's pleasure to take care of you. Your symptoms are not consistent with COVID-19 infection. There is a small likelihood you could have an early COVID-19 infection. If you develop shortness of breath, fever or any other concerns please return immediately to the emergency department for testing. [facility] - Primary Care [address] [place] [address] [id number] [facility] [address] [place] [address] Under all circumstances we always encourage you to contact your private physician who remains a resource for coordinating your care. When calling for follow-up care, please make the office aware that this follow-up is from your recent emergency room visit. If for any reason you are refused follow-up, please contact the Emergency Department at and asked to speak to the emergency department charge nurse. Sepsis Event Note (ED) - Evaluation Sepsis Screening Result: No Definite Risk - Focused Exam Vital Signs: Vital Signs Temp Pulse Resp BP Pulse Ox 08/27/19 12:31 97.5 F 97 15 117/81 100
== END 2019-08-27 13:09 | disposition home or self-care (01) ==
LOC: MW.ED 12:13
DX: J30.9 Allergic rhinitis, unspecified (principal); M79.10 Myalgia, unspecified site; F17.210 Nicotine dependence, cigarettes, uncomplicated
CPT/HCPCS: 99282; 99283